=== PATIENT | female | born 1990 | race Caucasian/White ===

== ENCOUNTER 2018-12-21 14:55 | Emergency (ER) | payer MEDICAID, OTHER ==
[~2018-12-21] VITALS: Ht 160 cm; Wt 79.5 kg
[2018-12-21] MEDS ORDERED: diphenhydrAMINE 50 mg/ml inj IV ONE (16:00)
[2018-12-21] MEDS ORDERED: methylPREDNISolone sod succ 125mg/2ml vial IV ONE (16:00)
--- NOTE | 2018-12-21 16:45 | NUR ---
after giving 12.5mg of benadryl slow push, pt c/o being disoriented. waited another 6.25mg given. pt refused rest of benadryl.
--- NOTE | 2018-12-21 17:09 | NUR ---
solumedrol 93.75mg given. pt refused rest of dose. pt states, im shaking and hr 105. continue to observe.
[2018-12-21 17:24] VITALS: BP 116/67
[2018-12-21] MEDS ORDERED: EPIN0.3P3 IA (17:32)
== END 2018-12-21 17:37 | disposition home or self-care (01) ==
LOC: ER 14:56
DX: T78.40XA Allergy, unspecified, initial encounter (principal); R06.02 Shortness of breath; X58.XXXA Exposure to other specified factors, initial encounter; Y93.89 Activity, other specified; Y92.89 Other specified places as the place of occurrence of the external cause; Y99.8 Other external cause status; Z88.1 Allergy status to other antibiotic agents; Z88.8 Allergy status to other drugs, medicaments and biological substances
CPT/HCPCS: 96374; 96375; 99283; J1200; J2930